=== PATIENT | female | born 1990 | race Caucasian/White ===

== ENCOUNTER 2017-07-10 18:36 | Emergency (ER) | payer OTHER ==
[~2017-07-10] VITALS: Ht 162.6 cm; Wt 83.2 kg
[~2017-07-10 18:36] MED LIST: HYDR-3965 PO
[2017-07-10 18:49] VITALS: BP 123/70
[2017-07-10] MEDS ORDERED: KETOROLAC TROMETHAMINE 30 MG/ML VIAL IM ONE (19:15)
== END 2017-07-10 19:36 | disposition home or self-care (01) ==
LOC: EMS 18:36
DX: G56.93 Unspecified mononeuropathy of bilateral upper limbs (principal)
CPT/HCPCS: 96372; 99283; J1885

== ENCOUNTER 2020-06-16 10:23 | Emergency (ER) | payer OTHER ==
[~2020-06-16] VITALS: Ht 167.6 cm; Wt 93.6 kg
[2020-06-16 10:32] VITALS: BP 114/58
[2020-06-16] MEDS ORDERED: IBUPROFEN 600 MG TABLET PO ONE (11:00)
== END 2020-06-16 11:45 | disposition home or self-care (01) ==
LOC: EMS 10:23
DX: S93.402A Sprain of unspecified ligament of left ankle, initial encounter (principal); Z91.013 Allergy to seafood; X50.1XXA Overexertion from prolonged static or awkward postures, initial encounter; Y93.89 Activity, other specified; Y92.89 Other specified places as the place of occurrence of the external cause; Y99.8 Other external cause status
CPT/HCPCS: 99283